=== PATIENT | female | born 1940 | race Caucasian/White ===

== ENCOUNTER → 2022-05-06 | Outpatient (CLI) | payer OTHER ==
[2022-05-06 10:48] LABS: BUN/CREATININE RATIO 18 (0-10)
== END ==
LOC: LAB 09:45
PROVIDERS: Family Medicine
DX: E87.5 Hyperkalemia (principal); E55.9 Vitamin D deficiency, unspecified; R73.9 Hyperglycemia, unspecified
CPT/HCPCS: 36415; 80048; 83036